=== PATIENT | female | born 1940 | race Caucasian/White ===

== ENCOUNTER → 2017-09-23 12:47 | Outpatient (CLI) | payer MEDICARE, SELFPAY ==
--- NOTE | 2017-09-23 12:50 | RAD_ITS ---
STUDY: SWALLOWING STUDY REASON FOR EXAM: Female, 76 years old. Dysphagia. TECHNIQUE: The examination was performed with Speech Pathology in attendance. Under fluoroscopic observation, the patient ingested thin barium, thick barium, barium pudding, and barium coated cracker. FLUOROSCOPY TIME: 1:41 minutes/seconds. 1433 fluoroscopic spot images were obtained. RADIOLOGIST INVOLVEMENT: Radiologist was present and providing direct supervision. COMPARISON: None. FINDINGS: The following was observed during swallowing of the various mixtures of barium: Thin Barium: There was no evidence of aspiration or laryngeal penetration. Barium Pudding: There was no evidence of aspiration or laryngeal penetration. Barium Coated Cracker: There was no evidence of aspiration or laryngeal penetration. RAD/Swallowing Function w/Video IMPRESSION: Normal tailored barium swallow study. No evidence of increased risk for aspiration. The swallow study findings were discussed with the patient by the speech pathologist at the conclusion of the examination. Please see speech pathology report for more information and recommendations. Electronically Signed: Elmer Linares MD at 15:45 EST Tel [phone], Service support ,
--- NOTE | 2017-09-23 14:42 | SP.MBSS_ITS ---
PRIMARY / SECONDARY DIAGNOSIS: dysphagia (R13.10) REFERRING PHYSICIAN: Dr. Brian Bee MD CURRENT DIET: regular textures, thin liquids DENTITION: WFL MENTAL STATUS: WNL RESPIRATORY STATUS: O2 via room air PREVIOUS MODIFIED BARIUM SWALLOW STUDY: Reports prior MBS quite a few years ago, with a bone spur projecting into the esophagus. REASON FOR REFERRAL: Patient is a 76 year old female referred for a modified barium swallow (MBS) study to objectively assess the Patients oropharyngeal swallow function under fluoroscopy secondary to reported dysphagia with solids and liquids, with the Patient reporting gradual onset with Patient describing that all textures are at times hard to swallow, and hard to keep down. Noted head tremor, diplophonia / vocal tremor, reports workup planned with neurologist within the next few weeks. MEDICAL HISTORY: Arthritis, type II diabetes mellitus, hypercholesterolemia, hypertension, skin cancers, prior cholecystectomy, hemorrhoidectomy, total abdominal hysterectomy, shoulder surgery, bone graft with then subsequent development of a ventral hernia repair with repair, bladder sling procedure. STUDY FINDINGS: Patient participated in a Modified Barium Swallow (MBS) study on 09/23/2017. Dr. Linares was the radiologist present for this evaluation. This study was recorded in the lateral view and images were sent to PACs for storage. The following consistencies were presented to this patient for analysis of oropharyngeal swallow function: thin liquids, pudding, and a regular textured, Stacey Doone cookie. Results of the MBS are as follows: PENETRATION / ASPIRATION SCALE (GONG): 1 = does not enter airway 2 = enters airway/above vocal folds/ejected 3 = enters airway/above vocal folds/not ejected 4 = enters airway/contacts vocal folds/ejected 5 = enters airway/contacts vocal folds/not ejected 6 = enters airway/below vocal folds/ejected 7 = enters airway/below vocal folds/not ejected despite effort 8 = enters airway/below vocal folds/no effort PENETRATION / ASPIRATION SCALE (SCORE): Thin liquids via cup (single sip): 2 Thin liquids via cup (single sip): 1 Thin liquids via cup (single sip): 1 Thin liquids via straw (single sip): 2 Pudding via spoon: 1 Regular textured cookie: 1 Thin liquids via cup (sequential swallows): 4 Thin liquids via straw (single sip): 1 IMPRESSION: DIAGNOSIS: mild oropharyngeal dysphagia (R13.12) ORAL PHASE CHARACTERIZED BY: LABIAL SEAL: no labial escape TONGUE CONTROL DURING BOLUS MANIPULATION: cohesive bolus between tongue to palatal seal BOLUS PREPARATION / MASTICATION: timely and efficient chewing and mashing BOLUS TRANSPORT / LINGUAL MOTION: mild repetitive/disorganized tongue motion with solids; delayed initiation of tongue motion (2-4 seconds) ORAL RESIDUE: residue collection on oral structures during trials of pudding textures PHARYNGEAL PHASE CHARACTERIZED BY: INITIATION OF PHARYNGEAL SWALLOW: bolus head at posterior laryngeal surface of epiglottis at first hyoid excursion during thin liquid via straw trials; bolus head in valleculae at first hyoid excursion across remaining trials SOFT PALATE ELEVATION: no bolus between soft palate and pharyngeal wall LARYNGEAL ELEVATION: complete superior movement of thyroid cartilage with complete approximation of arytenoids cartilage to epiglottic petiole ANTERIOR HYOID EXCURSION: complete anterior movement EPIGLOTTIC MOVEMENT: complete epiglottic inversion LARYNGEAL VESTIBULE CLOSURE AT HEIGHT OF SWALLOW: complete laryngeal vestibule closure with no air/contrast in laryngeal vestibule PHARYNGEAL STRIPPING WAVE: pharyngeal stripping wave present / complete PHARYNGOESOPHAGEAL SEGMENT OPENING: complete distension and complete duration with no obstruction of flow TONGUE BASE RETRACTION: no contrast between tongue base and posterior pharyngeal wall PHARYNGEAL RESIDUE: complete pharyngeal clearance ESOPHAGEAL PHASE CHARACTERIZED BY: ESOPHAGEAL BOLUS CLEARANCE IN THE UPRIGHT POSITION: mild esophageal retention during pudding texture trials at C-7 location, cleared with subsequent bolus DIET TEXTURE RECOMMENDATIONS: Will recommend a regular-soft textured, thin liquid diet. COMPENSATORY STRATEGIES RECOMMENDED: Chin tuck, reduced bolus volume, avoid straws, seated upright at 90 degrees during PO intake, larger medications crushed with applesauce, INTERPRETATION OF RESULTS: Patient presents with mild oropharyngeal and pharyngoesophageal dysphagia ( R13.12, R13.14), likely contributing factors include primary or secondary presbyphagia, and possible undiagnosed neurological component. Oral phase primarily marked by suboptimal lingual control with noted mild repetitive / disorganized tongue motion with solids and persistent delayed initiation of tongue motion (2-4 seconds) typically identified in neurological associated oral phase dysphagia. Pharyngeal phase marked by mild delayed pharyngeal swallow onset timing resulting in suboptimal bolus location upon swallow onset contributing to prandial transient penetration of larger thin liquid bolus. All deficits ameliorated with bolus volume adjustments. Sufficient laryngeal vestibule pressure generated to expel penetrated material. 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 RECOMMENDATIONS: Patient reports plans for neurological workup due to transient upper extremity numbness, would anticipate further workup in regards to noted head tremor and dysphonia if not already completed, as multiple neurological conditions associated with dysphagia present with similar findings identified under fluoroscopy during initial stages, though clearly cannot diagnose through fluoroscopic assessment of the swallow profile. Patient able to comprehend and express recommended intake precautions detailed above with sufficient detail to suggest high likelihood of compliance. Provided brief overview of signs and symptoms of aspiration, with recommendations for the Patient to further discuss symptoms with PCP. No further skilled speech-language services warranted at this time targeting dysphagia. ADDITIONAL COMMENTS/RECOMMENDATIONS: Results and recommendations were discussed with the Patient immediately following MBS completion, with the Patient verbalizing understanding and agreement with all recommendations and education provided. IMAGE COUNT: [id number] G-CODES: SWALLOWING [id number] Current Status: CI SWALLOWING G8997 Goal Status: CI SWALLOWING G8998 Discharge Status: CI
== END ==
PROVIDERS: Family Provider Family Medicine; PCP Family Medicine; Visit Provider Family Medicine
DX: R13.10 Dysphagia, unspecified (principal)
CPT/HCPCS: 74230; 92611; G8996; G8997; G8998

== ENCOUNTER 2020-10-07 05:20 | Day surgery (SDC) | payer MEDICARE, SELFPAY ==
[2020-10-01 15:21] VITALS: BMI 23.8
--- NOTE | 2020-10-07 05:49 | HP.PCM_ITS ---
Problem List (1) Anemia Status: Acute Qualifiers: Anemia type: unspecified type (2) Postprandial nausea Status: Acute History and Physical Date of Admission: 10/07/20 Intake Visit Reasons: FATIGUE, ANEMIA, CSCOPE Chief Complaint: Fatique/anemia/needs upper and lower endoscopies [employer] Required: No Is patient in pain?: No Allergies acetaminophen [From Percocet] Allergy (Intermediate, Verified 10/01/20 15:22) Laryngospasms erythromycin base Allergy (Intermediate, Verified 10/01/20 15:31) stomach ache/headaches oxycodone HCl [From Percocet] Allergy (Intermediate, Verified 10/01/20 15:22) Laryngospasms sulfamethoxazole [From Bactrim] Allergy (Intermediate, Verified 10/01/20 15:30) Nausea trimethoprim [From Bactrim] Allergy (Intermediate, Verified 10/01/20 15:30) Nausea metoclopramide [From Reglan] Allergy (Mild, Verified 10/01/20 15:33) cough azithromycin [From Zithromax Z-Angel] Adverse Reaction (Severe, Verified 10/01/20 15:22) Chest tightness tetracycline Adverse Reaction (Severe, Verified 10/01/20 15:22) Swelling hydrocodone bitartrate [From Vicodin] Adverse Reaction (Intermediate, Verified 10/01/20 15:22) Nausea lisinopril Adverse Reaction (Intermediate, Verified 10/01/20 15:32) cough Medications Aspirin [Adult Low Dose Aspirin EC] 81 mg PO DAILY 05/16/15 [History Confirmed 10/01/20] Cholecalciferol (VIT D3) [Vitamin D] 2,000 unit PO DAILY 05/16/15 [History Confirmed 10/01/20] Nasacort 2 puff NASAL BID PRN 05/16/15 [History Confirmed 10/01/20] Metformin HCl 500 mg PO BID 10/01/20 [History] amlodipine 10 mg tablet 10 mg PO DAILY 10/01/20 [History Confirmed 10/01/20] ascorbate calcium (vitamin C) 500 mg tablet 500 mg PO DAILY 10/01/20 [History Confirmed 10/01/20] biotin 1 mg capsule 5,000 mcg PO DAILY cap 10/01/20 [History Confirmed 10/01/20] chlorthalidone 25 mg tablet 25 mg PO DAILY 10/01/20 [History Confirmed 10/01/20] docusate sodium 100 mg capsule 100 mg PO DAILY PRN 10/01/20 [History Confirmed 10/01/20] famotidine 20 mg tablet 20 mg PO DAILY 10/01/20 [History Confirmed 10/01/20] fenofibrate nanocrystallized 145 mg tablet 145 mg PO DAILY 10/01/20 [History Confirmed 10/01/20] ferrous sulfate 325 mg (65 mg iron) tablet 325 mg PO DAILY 10/01/20 [History Confirmed 10/01/20] lansoprazole 30 mg capsule,delayed release 20 mg PO DAILY cap 10/01/20 [History Confirmed 10/01/20] metoprolol succinate 50 mg tablet,extended release 24 hr 100 mg PO DAILY tab 10/01/20 [History Confirmed 10/01/20] vitamins A,C,F-ckey-mxtyrx 14,320 unit-226 mg-200 unit capsule 1 cap PO BID 10/01/20 [History Confirmed 10/01/20] [facility] Medical History (Updated 10/01/20 @ 15:[address] Ryan Cope MD) Anemia (Acute) Chronic renal failure, stage 4 (severe) (Chronic) Dyspnea on exertion (Acute) Postprandial nausea (Acute) Anemia (Acute) Arthritis (Acute) Constipation (Acute) Diabetes (Acute) Fatigue (Acute) GERD (gastroesophageal reflux disease) (Acute) Hemorrhoids (Acute) Nausea (Acute) SOB (shortness of breath) (Acute) Weakness (Acute) Weight loss (Acute) Hypertension (Chronic) Surgical History (Updated 10/01/20 @ 15:20 by Reyna Kohli) History of back surgery (Acute) History of bladder repair surgery (Acute) History of cholecystectomy (Acute) History of hemorrhoidectomy (Acute) History of hysterectomy (Acute) History of lithotripsy (Acute) History of repair of hiatal hernia (Acute) hhistory exciion skin lesion left arm (Acute) history bunion surgery (Acute) history cataract surgery right eye (Acute) history incisional herniorrhaphy with mesh (Acute) history left eye surgery (Acute) history lysis of adhesions (Acute) history of tumor removed from ureter (Acute) history removal plate in neck (Acute) history surgery left shoulder (Acute) Family History (Updated 10/01/20 @ 15:21 by Reyna Kohli) Mother Cancer leukemia Social History (Updated 10/01/20 @ 15:[address] Ryan Cope MD) Smoking Status: Former smoker alcohol intake: never substance use type: does not use HPI HPI HPI: JUNG LERNER, is a 79 F who presents to the office today for surgical consultation regarding postprandial nausea and generalized abdominal pain and 7 to 10 pound weight loss and anemia. The patient is referred by Dr. Brian Bee and a written copy my surgical consult recommendations will return to him. The patient states that since late July she has not been feeling well. 45 minutes postprandially she gets nausea. When she tries to walk she gets short of breath. She feels very weak and tired. She was just seen in the emergency room at [place] yesterday. She claims that COVID-19 testing was done was negative. She has had both of her vaccinations. She claims that since August 2020 she has had 3 recurrent urinary tract infections. 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 She states that she was seen by Dr. Monroy in [facility] just this past week and was told that she was fine. In the emergency room yesterday she was told that she had a recurrent urinary tract infection. She states that her stool was checked for blood yesterday and it was negative. She had a head CT scan because she was complaining of being dizzy and lightheaded. The head CT scan was unremarkable. She denies family history of colon cancer. She claims that she had a previous colonoscopy but that was quite remote. Evidence goes back to October 25, 2006 when she had esophageal manometry. 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 November 2002 she had a modified barium cookie swallow. That showed a large anterior osteophyte involving the inferior endplate of C5 displacing the esophagus anteriorly. The rest of the study was normal. She currently resides at [facility] Her medication list suggests that she is on a low-dose aspirin 81 mg daily. She is also on metoprolol. She states that she does get constipated and has to take prune juice. As of September 22, 2020 her hemoglobin A1c was 6.1. BUN was 46 and creatinine 1.68. Albumin level 4.4. Liver function tests were normal. Triglycerides elevated to 334. Her white blood cell count was 12.7 with a hemoglobin at that time of 9.6 and hematocrit of 29.1 and a platelet count of 3 and 44,000. As of October 01 her BUN was 38 and creatinine 1.87. Liver function test still normal. Her estimated GFR was 26. Her white blood cell count 14.3 with a hemoglobin of 8.8 hematocrit 26.4 platelet count 353,000. Because of her renal function she had a completely noncontrasted CT not even oral contrast. Poorly evaluated bowel because of lack of contrast. No definitive diagnosis. A chest x-ray from September 2020 showed no focal consolidation pleural effusion or pneumothorax. Because of her dizziness she also had a head CT yesterday that was without contrast. No intracranial abnormalities identified HPI HPI HPI: JUNG LERNER, is a 79 F who presents to the office today for ROS General General: Yes weight change and fatigue; no appetite, colon cancer, breast cancer or weakness HEENT HEENT: Yes eye surgery; no difficulty swallowing, eye injury, swollen glands or hoarseness Endo Endocrine: Yes diabetes mellitus; no thyroid disease, thyroid cancer, Hair loss, heat intolerance or cold intolerance Skin Skin: No rash or changing moles Breast Breast: No left breast lump, right breast lump, nipple discharge, breast pain, abnormal mammogram, abnormal US or breast enlargement Musc Musculoskeletal: Yes arthritis; no back problems, rheumatoid arthritis, gout or joint pain Cardio Cardiovascular: Yes high blood pressure; no murmur, pacemaker, heart disease, atrial fibrillation, heart attack, heart stent, palpitations, shortness of breat with exertion or chest pain Psych Psychiatric: No depression, anxiety or hearing voices Resp Respiratory: Yes shortness of breath, No sleep apnea, No cough, No COPD, No asthma, No emphysema, No wheezing Gastro Gastrointestinal: No abdominal pain, Yes nausea or vomiting, No diarrhea, Yes constipation, No blood in stool, Yes acid reflux, Yes hemorrhoids, No ulcers, No gallbladder problem, No black,tarry stools Jame Hematologic: No blood thinners, No blood disorders, No bleeding, Yes anemia, No blood clots Neuro Neurologic: No system reviewed and no additional complaints, except as docu, No as per HPI, No abnormal walking, No abnormal hearing, No abnormal movements, No abnormal speech, No behavioral changes, No burning sensations, No confusion, No seizure-like activity, No unsteadiness, No dizziness, No localized weakness, No frequent falls, No headache(s), No lack of coordination, No loss of vision, No memory loss, No numbness, No other visual disturbances, No radiating pain, No restless legs, No sensory deficit, No fainting, No tingling, No tremor(s), No weakness, No other Exam Const General: cooperative, comfortable, no acute distress Nutritional Appearance: underweight Orientation: alert, awake Other: Pale appearance, tremor noted HENFL Other: Pale yellow skin Eyes General: appearance normal, both eyes and all related structures Chest Breast Palpation: No nipple discharge Other: Kyphotic, Resp Effort & Inspection: normal respiratory effort Auscultation: clear to auscultation bilaterally Cardio Rate: regular rate Rhythm: regular rhythm Heart Sounds: no murmurs GI Palpation: soft Other: Palpable ascending: Seemingly with stool slightly mobile, no hepatosplenomegaly, mild diffuse tenderness throughout the left mid abdomen and lower but no mass no guarding no rebound, very active bowel sounds, well-healed transverse incision epigastrium and then upper mid abdomen with that a well- healed vertical midline incision from superior to the umbilicus to the pubis. Slightly bloated abdomen but not tense. Assessment & Plan Problems 1. Postprandial nausea R11.0 2. Dyspnea on exertion R06.00 3. Chronic renal failure, stage 4 (severe) N18.4 4. Anemia, unspecified type D64.9 Plan I propose for the patient a esophagogastroduodenoscopy with possible biopsy and colonoscopy possible biopsy or polypectomy as indicated. She is aware of the technique, benefit, risk and alternatives. She has had an opportunity to ask and have questions answered. We will definitely use monitored anesthesia care. She is aware that she is at increased risk. Although her stool recent was Hemoccult negative I do believe that endoscopic evaluation is pertinent. If no definitive finding is identified then I would recommend consideration for nephrology consultation. Although the patient is recently seen by her urologist the patient herself states that she has had repetitive urinary tract infections. I am not clear that this is been definitively answered for her. I appreciate the opportunity of assisting with her surgical care. We will try to expedite her management. Copy: Dr. Brian Cope M.D., F.A.C.S. Coding Level of Care Code 72527 Diagnoses Postprandial nausea R11.0 Dyspnea on exertion R06.00 Chronic renal failure, stage 4 (severe) N18.4 Anemia, unspecified type D64.9 ??Anemia type: unspecified type I have re-examined the patient. There are no clinical changes since date of exam. Procedure Criteria Procedure Type: Elective COVID Risk Discussion: The surgeon/proceduralist and patient have discussed in detail the risk of exposure to and/or potential harm posed by the COVID-19 virus with having a surg woo/procedure at this time versus the risk of delaying the surgery/procedure. It is not possible to know either the risk of delaying the surgery or procedure or chance of getting an infection with perfect accuracy, but a joint decision was made between the patient and the surgeon/proceduralist to proceed at this time with the scheduled surgery/procedure as indicated on the consent form.
[2020-10-07 05:53] VITALS: BP 130/54; PULSE 63; RESP 20; TEMP 36.6; O2SAT 98; BMI 23.5
[2020-10-07] MEDS: Lactated Ringers 1,000 ML 100 ML IV (06:18)
--- NOTE | 2020-10-07 06:30 | IMM_PTH ---
PATIENT: JUNG LERNER LOC: EN U#:[id number] AGE/SX: 80/F ROOM: RE10/07/[address]: Dr. Ryan Cope MD : 1940 BED: DIS: 10/07/2020 SPEC #: [id number] RECD: 10/08/20 09:37 STATUS: ALLIE REQ #: [id number] BRITNEY: 10/07/20 06:[address]: Ryan Cope DEPT: IMMUNOHISTOCHEMISTRY RECD BY: Myla Jorge ENTERED: 10/08/20 09:38 SP TYPE: IMMUNO OTHR DR: Dr. Brian Bee MD Tissues: B - Stomach, NOS Procedures: H Pylori (initial) PHYSICIAN & INSTITUTION [place] [phone] SPECIMEN INFORMATION: Tissue Source: B - Antrum biopsy Clinical Info: Postprandial nausea; dyspnea on exertion; chronic renal failure stage 4; anemia Specimen Number: [id number] CPT code: 62154 METHODOLOGY: Deparaffinized sections of prefer/formalin-fixed tissue or PAP/DQ stained slides are incubated with monoclonal/polyclonal antibodies/oligonucleotide probes. Localization is made via biotin free immunoperoxidase method. Appropriate controls are performed and reacted as expected. Results on target cell population are indicated in the following table: RESULTS: ANTIBODY / CLONE RESULT Block B H Pylori (polyclonal) negative These tests were developed and their performance characteristics determined by [facility]. They may not have been cleared or approved by the U.S. Food and Drug Administration. The FDA has determined that such clearance or approval is not necessary. INTERPRETATION: B. Antrum, biopsy: Negative for Helicobacter pylori organisms. SJ:emani 10/09/2020
--- NOTE | 2020-10-07 06:30 | EGD_PTH ---
PATIENT: JUNG LERNER LOC: EN U#:[id number] AGE/SX: 80/F ROOM: RE10/07/[address]: Dr. Ryan Cope MD : 1940 BED: DIS: 10/07/2020 SPEC #: [id number] RECD: 10/07/20 13:43 STATUS: ALLIE [facility] #: [id number] BRITNEY: 10/07/20 06:[address]: Ryan Cope DEPT: SURGICAL PATHOLOGY RECD BY: Savannah Bazan ENTERED: 10/08/20 07:41 SP TYPE: EGD BIOPSY OT DR: Dr. Brian Bee MD Tissues: A - Duodenum, NOS B - Gastric mucous membrane C - Gastric fundus D - Esophagus, NOS E - Esophagus, NOS F - COLON BIOPSY G - Transverse colon H - Transverse colon Procedures: Special Stain Group II Surgery Specimen Level IV Alcian Blue/PAS (control) HEADER OPERATION: [place] [place]-OP DIAGNOSIS: Postprandial nausea, dyspnea on exertion, chronic renal failure stage 4, anemia TISSUE SUBMITTED: A - Duodenum biopsy, B - Antrum biopsy for H. pylori and path, C - Fundic polyp biopsy, D - Distal esophagus biopsy, E - Mid esophagus biopsy, F - Random colonic biopsies, G - Proximal transverse colon polyp biopsy, H - Mid transverse colon polyp biopsy MICROSCOPIC DIAGNOSIS A. Duodenum, biopsy: A fragment of duodenal mucosa, no pathologic diagnosis. B. Antrum, biopsy: Mild gastritis. See microscopic description and comment. C. Fundic polyp, biopsy: Fundic gland polyp. D. Distal esophagus, biopsy: A fragment of gastroesophageal mucosa with focal intestinal metaplasia (goblet cell metaplasia), consistent with Portillo's esophagus. Negative for dysplasia. See comment. E. Mid esophagus, biopsy: Fragments of squamous epithelium, no pathologic diagnosis. F. Colon, random biopsy: Fragments of colonic mucosa, no pathologic diagnosis. G. Proximal transverse colon polyp, biopsy: Tubular adenoma. H. Mid transverse colon polyp, biopsy: A fragment of colonic mucosa, no pathologic diagnosis. SJ:emani 10/09/2020 COMMENT B. The results of immunohistochemistry for Helicobacter pylori will be reported separately ([id number]). D. The specimen predominantly consists of squamous epithelium. Alcian blue/PAS stain with matched control is used in the evaluation of the specimen. MICROSCOPIC DESCRIPTION Slides are reviewed. B. The specimen shows fragments of gastric mucosa with chronic inflammatory cell infiltrates in the lamina propria consisting of lymphocytes and plasma cells, consistent with mild chronic gastritis. GROSS DESCRIPTION A - Received in fixative is one container labeled with the patient's name and designated duodenum biopsy. The specimen consists of one irregular fragment of light gorman soft tissue that measures 0.3 x 0.3 x 0.1 cm. The specimen is totally submitted in one cassette. B - Received in fixative is one container labeled with the patient's name and designated antrum biopsy. The specimen consists of one irregular fragment of light gorman soft tissue that measures 0.3 x 0.2 x 0.1 cm. The specimen is totally submitted in one cassette. C - Received in fixative is one container labeled with the patient's name and designated fundic polyp biopsy. The specimen consists of two irregular fragments of light gorman soft tissue that in aggregate measure 0.5 x 0.2 x 0.1 cm. The specimen is totally submitted in one cassette. D - Received in fixative is one container labeled with the patient's name and designated distal esophagus biopsy. The specimen consists of one irregular fragment of light gorman soft tissue that measures 0.5 x 0.5 x 0.1 cm. The specimen is totally submitted in one cassette. E - Received in fixative is one container labeled with the patient's name and designated mid esophagus biopsy. The specimen consists of two irregular fragments of light gorman soft tissue that in aggregate measure 0.8 x 0.4 x 0.1 cm. The specimen is totally submitted in one cassette. F - Received in fixative is one container labeled with the patient's name and designated random colonic biopsy. The specimen consists of multiple irregular fragments of light gorman soft tissue that in aggregate measure 2 x 0.5 x 0.1 cm. The specimen is totally submitted in one cassette. G - Received in fixative is one container labeled with the patient's name and designated proximal transverse colon polyp biopsy. The specimen consists of one irregular fragment of light gorman soft tissue that measures 0.3 x 0.2 x 0.1 cm. The specimen is totally submitted in one cassette. H - Received in fixative is one container labeled with the patient's name and designated mid transverse colon polyp biopsy. The specimen consists of one irregular fragment of light gorman soft tissue that measures 0.3 x 0.3 x 0.1 cm. The specimen is totally submitted in one cassette. / SJ:rg 10/08/20 TC:1 CPT: 56065 x8, 66730
[2020-10-07 07:15] VITALS: BP 117/42; BP 130/54; PULSE 58; RESP 16; TEMP 36.3; O2SAT 100
--- NOTE | 2020-10-07 07:18 | OP.EGD_ITS ---
Patient Name: Mckenna Hooks Procedure Date: 10/07/2020 6:14 AM Date of : 1940 Age: 80 Procedure: Upper GI endoscopy Indications: Generalized abdominal pain Providers: Ryan Cope MD Referring MD: Brian Bee Medicines: See the Anesthesia note for documentation of the administered medications Complications: No immediate complications. Procedure: Pre-Anesthesia Assessment: - Prior to the procedure, a History and Physical was performed, and patient medications and allergies were reviewed. The patient's tolerance of previous anesthesia was also reviewed. The risks and benefits of the procedure and the sedation options and risks were discussed with the patient. All questions were answered, and informed consent was obtained. Prior Anticoagulants: The patient has taken aspirin, last dose was day of procedure. ASA Grade Assessment: III - A patient with severe systemic disease. After reviewing the risks and benefits, the patient was deemed in satisfactory condition to undergo the procedure. After obtaining informed consent, the endoscope was passed under direct vision. Throughout the procedure, the patient's blood pressure, pulse, and oxygen saturations were monitored continuously. The gastroscope was introduced through the mouth, and advanced to the second part of duodenum. The upper GI endoscopy was accomplished without difficulty. The patient tolerated the procedure well. Scope In: 6:32:12 AM Scope Out: 6:39:34 AM Total Procedure Duration Time 0 hours 7 minutes 22 seconds Findings: A small hiatal hernia was present. Esophagitis with no bleeding was found 40 cm from the incisors. Biopsies were taken with a cold forceps for histology. The mid esophagus was normal. Biopsies were taken with a cold forceps for histology. A few sessile polyps with no bleeding and no stigmata of recent bleeding were found in the gastric fundus. The polyp was removed with a cold biopsy forceps. Resection and retrieval were complete. Diffuse mildly erythematous mucosa without bleeding was found in the gastric antrum. Biopsies were taken with a cold forceps for histology. The examined duodenum was normal. Biopsies were taken with a cold forceps for histology. Impression: - Small hiatal hernia. - Reflux esophagitis. Biopsied. - Normal mid esophagus. Biopsied. - A few gastric polyps. Resected and retrieved. - Erythematous mucosa in the antrum. Biopsied. - Normal examined duodenum. Biopsied. Recommendation: - Discharge patient to home. - Resume previous diet. - Continue present medications. - Use sucralfate tablets 1 gram PO QID. No findings to correlate with degree of patient symptoms Procedure Code(s): --- Professional --- 97941, Esophagogastroduodenoscopy, flexible, transoral; with biopsy, single or multiple Diagnosis Code(s): --- Professional --- K44.9, Diaphragmatic hernia without obstruction or gangrene K21.0, Gastro-esophageal reflux disease with esophagitis K31.7, Polyp of stomach and duodenum K31.89, Other diseases of stomach and duodenum R10.84, Generalized abdominal pain CPT copyright 2017 [employer]. All rights reserved. The codes documented in this report are preliminary and upon hcc coders review may be revised to meet current compliance requirements. Ryan Cope MD 10/07/2020 7:17:48 AM This report has been signed electronically. Number of Addenda: 0 Note Initiated On: 10/07/2020 6:14 AM
--- NOTE | 2020-10-07 07:18 | OP.CCLET_ITS ---
10/07/2020 Brian Bee Re : Upper GI endoscopy procedure for Mckenna Hooks Dear Cristal This procedure was performed on Wednesday, October 07, 2020. My impressions and recommendations are as follows: Impressions : - Small hiatal hernia. - Reflux esophagitis. Biopsied. - Normal mid esophagus. Biopsied. - A few gastric polyps. Resected and retrieved. - Erythematous mucosa in the antrum. Biopsied. - Normal examined duodenum. Biopsied. Recommendations : - Discharge patient to home. - Resume previous diet. - Continue present medications. - Use sucralfate tablets 1 gram PO QID. No findings to correlate with degree of patient symptoms My findings are described in the full procedure note, which is enclosed. If I can be of further assistance, please feel free to contact me at Doctor phone number(s): Work: . Sincerely, Ryan Cope MD 10/07/2020 7:17:48 AM This report has been signed electronically.
[2020-10-07 07:20] VITALS: BP 126/45; BP 130/54; PULSE 58; RESP 16; O2SAT 100
--- NOTE | 2020-10-07 07:22 | OP.CCLET_ITS ---
10/07/2020 Brian Bee Re : Colonoscopy procedure for Mckenna Hooks Dear Cristal This procedure was performed on Wednesday, October 07, 2020. My impressions and recommendations are as follows: Impressions : - Hemorrhoids found on perianal exam. - One 6 mm polyp in the proximal transverse colon, removed with a cold biopsy forceps. Resected and retrieved. - One 3 mm polyp in the mid transverse colon, removed with a cold biopsy forceps. Resected and retrieved. - Diverticulosis in the sigmoid colon. - The examination was otherwise normal. - Biopsies were taken with a cold forceps from the entire colon for evaluation of microscopic colitis. Recommendations : - Discharge patient to home. - Resume previous diet. - Continue present medications. - Repeat colonoscopy in 5 years for surveillance based on pathology results. - Telephone my office for pathology results in 1 week. No findings to correlate with abdominal pain Consider chronic renal insufficiency as source My findings are described in the full procedure note, which is enclosed. If I can be of further assistance, please feel free to contact me at Doctor phone number(s): Work: . Sincerely, Ryan Cope MD 10/07/2020 7:21:29 AM This report has been signed electronically.
--- NOTE | 2020-10-07 07:22 | OP.COLON_ITS ---
Patient Name: Mckenna Hooks Procedure Date: 10/07/2020 6:40 AM Date of : 1940 Age: 80 Procedure: Colonoscopy Indications: Generalized abdominal pain Providers: Ryan Cope MD Referring MD: Brian Bee Medicines: See the Anesthesia note for documentation of the administered medications Patient Profile: Last Colonoscopy: more than 10 years ago. Complications: No immediate complications. Procedure: Pre-Anesthesia Assessment: - Prior to the procedure, a History and Physical was performed, and patient medications and allergies were reviewed. The patient's tolerance of previous anesthesia was also reviewed. The risks and benefits of the procedure and the sedation options and risks were discussed with the patient. All questions were answered, and informed consent was obtained. Prior Anticoagulants: The patient has taken aspirin, last dose was day of procedure. ASA Grade Assessment: III - A patient with severe systemic disease. After reviewing the risks and benefits, the patient was deemed in satisfactory condition to undergo the procedure. After I obtained informed consent, the scope was passed under direct vision. Throughout the procedure, the patient's blood pressure, pulse, and oxygen saturations were monitored continuously. The Colonoscope was introduced through the anus and advanced to the cecum, identified by appendiceal orifice and ileocecal valve. The colonoscopy was technically difficult and complex due to a tortuous colon. Successful completion of the procedure was aided by applying abdominal pressure. The patient tolerated the procedure well. The quality of the bowel preparation was adequate to identify polyps. The ileocecal valve and the appendiceal orifice were photographed. Scope In: 6:42:32 AM Scope Withdrawal Time 0 hours 12 minutes 6 seconds Scope Out: 7:11:08 AM Total Procedure Duration Time 0 hours 28 minutes 36 seconds Findings: Hemorrhoids were found on perianal exam. A 6 mm polyp was found in the proximal transverse colon. The polyp was sessile. The polyp was removed with a cold biopsy forceps. Resection and retrieval were complete. A 3 mm polyp was found in the mid transverse colon. The polyp was sessile. The polyp was removed with a cold biopsy forceps. Resection and retrieval were complete. Multiple diverticula were found in the sigmoid colon. Biopsies for histology were taken with a cold forceps from the entire colon for evaluation of microscopic colitis. The exam was otherwise without abnormality. Impression: - Hemorrhoids found on perianal exam. - One 6 mm polyp in the proximal transverse colon, removed with a cold biopsy forceps. Resected and retrieved. - One 3 mm polyp in the mid transverse colon, removed with a cold biopsy forceps. Resected and retrieved. - Diverticulosis in the sigmoid colon. - The examination was otherwise normal. - Biopsies were taken with a cold forceps from the entire colon for evaluation of microscopic colitis. Recommendation: - Discharge patient to home. - Resume previous diet. - Continue present medications. - Repeat colonoscopy in 5 years for surveillance based on pathology results. - Telephone my office for pathology results in 1 week. No findings to correlate with abdominal pain Consider chronic renal insufficiency as source Procedure Code(s): --- Professional --- 98499, Colonoscopy, flexible; with biopsy, single or multiple Diagnosis Code(s): --- Professional --- K64.9, Unspecified hemorrhoids D12.3, Benign neoplasm of transverse colon (hepatic flexure or splenic flexure) R10.84, Generalized abdominal pain K57.30, Diverticulosis of large intestine without perforation or abscess without bleeding CPT copyright 2017 [employer]. All rights reserved. The codes documented in this report are preliminary and upon psychologist social review may be revised to meet current compliance requirements. Ryan Cope MD 10/07/2020 7:21:29 AM This report has been signed electronically. Number of Addenda: 0 Note Initiated On: 10/07/2020 6:40 AM
[2020-10-07 07:25] VITALS: BP 130/54; BP 132/46; PULSE 57; RESP 16; O2SAT 100
[2020-10-07 07:32] VITALS: BP 130/54; BP 136/50; PULSE 58; RESP 16; TEMP 36.1; O2SAT 99
[2020-10-07 07:59] VITALS: BP 130/54
== END 2020-10-07 08:10 | disposition home or self-care (01) ==
LOC: EN 05:23 → AC 05:23
PROVIDERS: PCP Family Medicine; Referring Provider Family Medicine; Visit Provider Surgery
PROC: 0DJD8ZZ Inspection of Lower Intestinal Tract, Via Natural or Artificial Opening Endoscopic (ICD-10-PCS; CPT 45378; principal; 2020-10-07 06:25)
DX: K21.00 Gastro-esophageal reflux disease with esophagitis, without bleeding (principal); Z20.828 Contact with and (suspected) exposure to other viral communicable diseases; D64.9 Anemia, unspecified; K31.7 Polyp of stomach and duodenum; K29.70 Gastritis, unspecified, without bleeding; D12.3 Benign neoplasm of transverse colon; I12.9 Hypertensive chronic kidney disease with stage 1 through stage 4 chronic kidney disease, or unspecified chronic kidney disease; K44.9 Diaphragmatic hernia without obstruction or gangrene; N18.4 Chronic kidney disease, stage 4 (severe); M19.90 Unspecified osteoarthritis, unspecified site; E11.22 Type 2 diabetes mellitus with diabetic chronic kidney disease; K59.00 Constipation, unspecified; R06.09 Other forms of dyspnea; Z79.899 Other long term (current) drug therapy; Z79.84 Long term (current) use of oral hypoglycemic drugs; Z79.82 Long term (current) use of aspirin; Z87.891 Personal history of nicotine dependence; K57.30 Diverticulosis of large intestine without perforation or abscess without bleeding
CPT/HCPCS: 43239; 45380; 87426; 88305; 88313; 88342; J7120

== ENCOUNTER → 2021-04-01 08:45 | Outpatient (CLI) | payer MEDICARE, SELFPAY ==
[2021-04-01] VITALS (10 sets, daily range): BP systolic 119–158; BP diastolic 41–72; PULSE 57–77; RESP 16–19; TEMP 36.6; O2SAT 94–100; BMI 22.4
--- NOTE | 2021-04-01 | IMM_PTH ---
PATIENT: JUNG LERNER LOC: CT U#:[id number] AGE/SX: 84/F ROOM: RE04/01/[address]: MEE Murray : 1940 BED: DIS: SPEC #: [id number] RECD: 04/02/21 13:15 STATUS: ALLIE REYordan #: [id number] BRITNEY: 04/01/21 00:[address]: Aranza Stanley NP DEPT: IMMUNOHISTOCHEMISTRY RECD BY: Myla Jorge ENTERED: 04/02/21 13:16 SP TYPE: IMMUNO OTHR DR: Dr. Brian Bee MD Tissues: A - Bone marrow of iliac crest Procedures: CD138 (add) CD20 (add) CD34 (add) CD45 (add) CD56 (add) CD79A (add) KAPPA (add) LAMBDA (add) MPO (add) Pankeratin (initial) PHYSICIAN & INSTITUTION [place] [id number] SPECIMEN INFORMATION: Tissue Source: A ? Bone marrow core Clinical Info: Leukocytosis, macrocytic anemia, thrombocytosis Specimen Number: [id number] CPT code: 32628, 04204 x9 METHODOLOGY: Deparaffinized sections of prefer/formalin-fixed tissue or PAP/DQ stained slides are incubated with monoclonal/polyclonal antibodies/oligonucleotide probes. Localization is made via biotin free immunoperoxidase method. Appropriate controls are performed and reacted as expected. Results on target cell population are indicated in the following table: RESULTS: ANTIBODY / CLONE RESULT Block A AE1-3 (AE1/AE3/PCK26) negative CD20 (L26) negative CD45 (RP2/18) negative CD79a (11E3) negative CD138 (B-A38) negative Carrabelle (polyclonal) negative Lambda (polyclonal) negative MPO (polyclonal) positive CD34 (QBEnd-10) positive, occasional CD56 (123C3.D5) negative These tests were developed and their performance characteristics determined by [facility]. They may not have been cleared or approved by the U.S. Food and Drug Administration. The FDA has determined that such clearance or approval is not necessary. The above immunohistochemical/dualISH markers are ordered and reviewed by the Pathologist. INTERPRETATION: A. Bone marrow core: Hypercellular bone marrow with dysplastic change and increased (approximately 4%) myeloblasts. AM:emani 04/03/2021 Case has been reviewed in consultation with Dr. Peter who concurs with the above diagnosis. IDC:SJ ADDENDUM ADDENDUM ADDENDUM ADDENDUM ADDENDUM ADDENDUM ADDENDUM ADDENDUM ADDENDUM ADDENDUM ADDENDUM ADDENDUM 04/08/2021 11:14 ADDENDUM 04/09/2021 11:28 ADDENDUM 04/08/2021 11:14 ADDENDUM 04/08/2021 11:14 ADDENDUM 04/08/2021 11:14 ADDENDUM 04/08/2021 11:14 FLUORESCENCE IN-SITU HYBRIDIZATION (FISH) FROM [facility] INTERPRETATION: 1. No evidence of BCR/ABL rearrangement. 2. No evidence of PML/ALIVIA gene rearrangement. 3. No evidence of RUNX1/GDZN3N1 rearrangement, however a subset of cells show an abnormal hybridization pattern consistent with gain of 8q or trisomy 8. 4. No evidence of CBFB [inversion (16) or translocation t(16;16)] gene rearrangement. 5. No evidence of MLL gene locus 11q23 translocation. Please see complete report in e-chart or EMR CYTOGENETICS REPORT FROM [facility] INTERPRETATION: A normal male/female karyotype was observed in twenty metaphases analyzed. 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 3q abnormalities were also reported in myeloid malignancies. Correlation with hematopathology is suggested Please see complete report in e-chart or EMR for further details
--- NOTE | 2021-04-01 | BMB_PTH ---
PATIENT: JUNG LERNER LOC: CT U#:[id number] AGE/SX: 84/F ROOM: RE04/01/[address]: MEE Murray : 1940 BED: DIS: SPEC #: [id number] RECD: 04/01/21 13:08 STATUS: ALLIE [facility] #: [id number] BRITNEY: 04/01/21 00:[address]: Aranza Stanley NP DEPT: BONE MARROW RECD BY: Savannah Bazan ENTERED: 04/01/21 13:09 SP TYPE: BMB OSMANY DR: Dr. 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 See comment. AM:emani 04/03/2021 COMMENT Flow cytometry analysis of aspirate material reveals mild increase in CD34 positive myeloblasts (4%) suggesting myeloid disorder. Immunohistochemistry ([id number]) also reveals a mildly increased blast population (2-3%). The bone marrow biopsy is markedly hypercellular (approximately 85%) and contains myeloproliferative morphology with clustering of atypical megakaryocytes, increased reticulin and trichrome fibers focally and small collections of mononuclear cells suggestive of blasts. The aspirate material is markedly hypocellular also suggesting myelofibrosis. Molecular and cytogenetic studies are pending and will be reported as an addendum. Case has been reviewed in consultation with Dr. Peter who concurs with the above diagnosis. IDC:SJ BONE MARROW STUDY Slides are reviewed. CBC DATE: 04/01/21 WBC 51.8; RBC 2.24; HGB 7.8; HCT 24.4; MCV 108.9; RDW 21.8; PLTS 510,000 SEGS 43%; LYMPHS 16%; MONOS 7%; EOS 2%; BASOS 0%; blasts 4 PERIPHERAL SMEAR: Submitted. RBC: Macrocytic anemia WBC: Left shift with dysplastic change and 4% blasts PLTS: Mild thrombocytosis. BONE MARROW ASPIRATE DIFFERENTIAL: Markedly hemodilute with 3-4% myeloblasts. 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 Unable to further analyze. SPECIAL STAINS (with matched controls): Iron: Stainable iron present with occasional atypical sideroblasts Reticulin: Focally increased (2/4) PAS: Highlights myeloid elements and megakaryocytes. Trichrome: Focally increased. BONE MARROW GROSS A - Received is a container labeled with the patient's name and designated right hip. The specimen consists of an elongated piece of bone with blood clots. The bone measures 3 cm in length and 0.2 cm in diameter. The blood clots measure in aggregate 1.5 x 0.5 x 0.2 cm. The specimen is totally submitted in one cassette after decalcification. B - Received labeled with the patient's name and designated right hip is a specimen that consists of approximately 4 cc of bloody fluid that on filtration yields multiple minute fragments of blood clots measuring in aggregate 3 x 2.5 x 0.2 cm. The specimen is totally submitted in one cassette. C - Also received are 18 unstained and 1 peripheral stained slides. The unstained slides are submitted for appropriate staining. Also received are three green top tubes which are sent to our reference lab for flow, cytogenetics and FISH x2. 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 Karyotype: 47,XX,add(3)(q12),+8[20] FLUORESCENCE IN-SITU HYBRIDIZATION (FISH) FROM [facility] INTERPRETATION: 1. No evidence of BCR/ABL rearrangement. 2. No evidence of PML/ALIVIA gene rearrangement. 3. No evidence for RUNX1/BACJ5W7 rearrangement, however a subset of cells show an abnormal hybridization pattern consistent with gain of 8q or trisomy 8. 4. No evidence of CBFB [inversion(16) or translocation t(16;16)] gene rearrangement. 5. No evidence of MLL gene locus 11q23 translocation. Please see complete report in e-chart or EMR
--- NOTE | 2021-04-01 09:01 | CT_ITS ---
PROCEDURE: Right iliac bone marrow aspiration and biopsy. DATE OF EXAMINATION: 04/01/2021 INDICATION: , 80 years old female presenting with blood dyscrasias referred for biopsy. PHYSICIAN: Camila Salas MD FLUOROSCOPY TIME (if supplied): (None) minutes/seconds RADIATION DOSAGE (If Supplied By Facility): (1710.14 ) mGy CONSENT: The risks, benefits and alternatives to the procedure were explained to the patient, and the patient agreed to the procedure and signed the consent. SEDATION: STERILE BARRIER TECHNIQUE: The following sterile barrier precautions were used during the procedure: hand hygiene; use of 2% chlorhexidine aseptic; use of a cap, mask, sterile gown, sterile gloves, sterile full body drape, and a large sterile sheet. PROCEDURE/TECHNIQUE: (All elements of maximal sterile barrier technique followed, including US elements as applicable) The risks, benefits, and alternatives to the procedure were explained to patient, and the patient agreed to the procedure and signed a consent form for the procedure. A timeout was performed to confirm the patient''s identity, the type of procedure, to be performed and the site of entry. The patient was positioned prone on the CT table and a limited CT scan of the pelvis was obtained. After evaluation of the images the right iliac bone was selected for sampling. The overlying skin was then prepped and draped in the usual sterile manner, LIDOCAINE 2% local anesthesia was then applied to the skin and subcutaneous soft tissues after which a small skin kena was made. An 11-gauge biopsy needle was then inserted under CT guidance into the right iliac bone and bone marrow aspiration was attempted, approximately 2 cc of fluid were aspirated and evaluated by the pathologist on site, repeat attempts aspiration for obtaining the marrow aspirate were unsuccessful therefore they were abandoned. 2 core biopsy specimens were then obtained and placed in formalin for the pathologist. The needle was then removed, manual pressure was applied and complete hemostasis was obtained. The patient tolerated the procedure well with no immediate complications. CT/Biopsy/Inj or Needle Placement IMPRESSION: Dry tap of bone marrow aspiration, two core bone biopsy specimens were obtained and sent to lab for analysis. Electronically Signed: Stephan Salas MD at 15:52 EDT Tel , Service support ,
[2021-04-01 09:13] LABS: Hematocrit 24.4 % (37-47); Hemoglobin 7.8 g/dL (12.0-15.0); Mean Corpuscular Hgb 34.8 pg (27.0-32.0); Mean Corpuscular Volume 108.9 fL (81-99); Mean Platelet Vol. 10.5 fl (6.2-12.0); POSITIVE COUNT YES; POSITIVE DIFFERENTIAL YES; POSITIVE MORPHOLOGY YES; Platelet Count 510 K/mm3 (150-450); RBC Distribution Width CV 21.8 % (11.6-14.6); RBC Distribution Width SD 83.4 fl (35.1-43.9); Red Blood Count 2.24 M/mm3 (4.2-5.4); White Blood Count 51.8 K/mm3 (4.4-11.0)
[2021-04-01 09:19] LABS: Differential Indicated MANUAL DIFF
[2021-04-01 09:21] LABS: International Normalized Ratio 1.2; Prothrombin Time (Protime)PT. 14.5 SECONDS (11.7-14.9)
[2021-04-01 09:22] LABS: Partial Thromboplast Time 35.2 Seconds (24.1-36.2)
[2021-04-01] MEDS: Midazolam 2 MG/2 ML Syringe IV (10:00)
[2021-04-01] MEDS: fentaNYL 100 MCG/2 ML Ampul IV (10:02)
[2021-04-01] MEDS: 0.9% Saline Lock 10 ML Syringe IV (10:05)
[2021-04-01] MEDS: Lidocaine 2% (20 ml mdv) 20 ML Vial INFILT (10:08)
[2021-04-01 10:19] LABS: Blast 4 % (0-0); Eosinophil 2 % (0-5); Lymphocyte 16 % (19-41); Metamyelocyte 6 % (0-1); Monocyte 7 % (0-10); Myelocyte 1 % (0-0); Neutrophil-Band 19 % (0-5); Neutrophil-Segmented 43 % (47-70); Promyelocyte 2 % (0-0); Total Cells Counted 100 (MANUAL DIFF)
[2021-04-01 10:21] LABS: Platelet Estimate SLT INC (ADEQ)
[2021-04-01 10:22] LABS: Anisocytosis 1+; Red Cell Morphology N CHROM NORMAL (NORM C&C)
[2021-04-01 10:24] LABS: Absolute Lymphocyte Count 8.29 X10^3/uL (0.83-4.51); Absolute Neutrophil Count 32.1 X10^3/uL (2.0-7.7)
[2021-04-01 10:25] LABS: Pathologist Review May foll
== END | disposition home or self-care (01) ==
PROVIDERS: PCP Family Medicine; Referring Provider Nurse Practitioner Family; Visit Provider Nurse Practitioner Family
DX: D72.829 Elevated white blood cell count, unspecified (principal); D47.3 Essential (hemorrhagic) thrombocythemia; N18.4 Chronic kidney disease, stage 4 (severe); D64.9 Anemia, unspecified; R11.0 Nausea
CPT/HCPCS: 38222; 36415; 77012; 85025; 85610; 85730; 88305; 88311; 88313; 88341; 88342; 99156; 99157; J7040; A4216

== ENCOUNTER 2021-07-30 17:18 | Inpatient (IN) | payer MEDICARE, SELFPAY ==
[2021-07-30 17:50] VITALS: BP 150/63; PULSE 79; RESP 16; TEMP 36.8; O2SAT 94; BMI 22.6
--- NOTE | 2021-07-30 18:50 | RAD_ITS ---
EXAM: XR ABDOMEN, 1 VIEW CLINICAL INDICATION: constipation, hx of multiple ilieus TECHNIQUE: Frontal supine view of the abdomen/pelvis. This report was created using [employer] report generation technology. COMPARISON: CT 10/07/2016 FINDINGS: LOWER THORAX: No acute pathology. GASTROINTESTINAL TRACT: Diffuse air-filled dilated small bowel loops. Findings may represent an ileus or small bowel obstruction. CT can further evaluate. ORGANS: Unremarkable as visualized. No organomegaly. No abnormal calcifications. BONES/JOINTS: Degenerative findings in the hips and lumbar spine. SOFT TISSUES: No acute pathology. RAD/Abdomen Single View IMPRESSION: Diffuse air-filled dilated small bowel loops. Findings may represent an ileus or small bowel obstruction. CT can further evaluate. Electronically Signed: Greg Horner MD at 22:17 EST , Service support ,
--- NOTE | 2021-07-30 18:51 | PCM.HP.STD ---
HPI - General General Date of Admission: 07/30/21 HPI Narrative 07/27/2021 JUNG LERNER, is a 80 Female with below past medical history admitted to [facility]. Weakness, right leg pain, change in mental status, fever. Right knee aspirated 1 day prior. covid negative. Rocephin, Vancomycin, IV fluids given. Patient has myelodysplastic syndrome. Hematology recommended PRBC transfusion hemoglobin < 7.0. Hematology recommended Platelet transfusion Plaletlet < 15,000. Transfuse PRBC for myelodysplastic syndrome. Doppler ultrasound right lower extremity negative DVT, Rocephin, Vancomycin for right knee ? septic arthritis. X-ray right hip negative for right hip pain. Lopressor 5mg IV x 2 for atrial fibrillation with rapid ventricular response. 07/30/2021 Admit to TCU with debility, here for rehabilitation, strengthening, prior to discharge to [facility]. On arrival, abdomen distended, per son, history of ileus. [facility] Medical History Anemia Anemia Arthritis Chronic renal failure, stage 4 (severe) Constipation Diabetes Dyspnea on exertion Elevated serum globulin level Fatigue GERD (gastroesophageal reflux disease) Hemorrhoids Hypertension Macrocytic anemia Nausea Postprandial nausea SOB (shortness of breath) Weakness Weight loss Home Medications Nasacort 2 puff NASAL BID PRN 05/16/15 [History Last Taken Unknown] aspirin 81 mg PO DAILY 05/16/15 [History Last Taken 03/31/21] cholecalciferol (vitamin D3) 2,000 unit PO DAILY 05/16/15 [History Last Taken 03/31/21] Metformin HCl 500 mg PO BID 10/01/20 [History Last Taken 04/01/21 07:00] amlodipine 10 mg tablet 10 mg PO DAILY 10/01/20 [History Last Taken 04/01/21 07:00] ascorbate calcium (vitamin C) 500 mg tablet 500 mg PO DAILY 10/01/20 [History Last Taken 03/31/21] biotin 1 mg capsule 5,000 mcg PO DAILY cap 10/01/20 [History Last Taken 03/31/21] chlorthalidone 25 mg tablet 25 mg PO DAILY 10/01/20 [History Last Taken 04/01/21 07:00] docusate sodium 100 mg capsule 100 mg PO DAILY PRN 10/01/20 [History Last Taken 03/31/21] fenofibrate nanocrystallized 145 mg tablet 130 mg PO DAILY 10/01/20 [History Last Taken 03/31/21] metoprolol succinate 50 mg tablet,extended release 24 hr 100 mg PO DAILY tab 10/01/20 [History Last Taken 04/01/21 07:00] acetaminophen 1,000 mg PO DAILY PRN 11/03/20 [History Last Taken Unknown] azelastine-fluticasone 23 gm NS DAILY PRN 11/03/20 [History Last Taken Unknown] hydrocodone-acetaminophen 5 - 325 mg PO Q4H PRN 11/03/20 [History Last Taken Unknown] naproxen 375 mg PO BID PRN PRN 11/03/20 [History Last Taken Unknown] ondansetron 4 mg PO Q8H PRN PRN 11/03/20 [History Last Taken Unknown] peg [id number]-[id number] 15 drp EACH EYE BID PRN 11/03/20 [History Last Taken Unknown] vitamins A,C,O-ofkl-fvunyw 1 each PO DAILY 11/03/20 [History Last Taken Unknown] diclofenac sodium 100 gm TP TID PRN 11/10/20 [History Last Taken Unknown] buspirone 5 mg tablet 5 mg PO TID 03/25/21 [History Last Taken 03/31/21] tramadol 50 mg tablet 50 mg PO Q6H PRN 03/25/21 [History Last Taken Unknown] famotidine 20 mg tablet 20 mg PO DAILY PRN 05/13/21 [History Last Taken Unknown] allopurinol 100 mg PO DAILY 07/30/21 [History Last Taken Unknown] cefdinir 300 mg PO BID 07/30/21 [History Last Taken Unknown] magnesium hydroxide 10 ml PO DAILY PRN 07/30/21 [History Last Taken Unknown] menthol-sorbitol [Throat Lozenges] 1 gonzalez MUCOUS MEMBRANE Q2H PRN 07/30/21 [History Last Taken Unknown] polyethylene glycol 3350 17 g PO BID PRN 07/30/21 [History Last Taken Unknown] prednisone 20 mg PO BID 07/30/21 [History Last Taken Unknown] senna 8.6 mg PO DAILY PRN 07/30/21 [History Last Taken Unknown] sucralfate 1 gm PO 4X/DAY 07/30/21 [History Last Taken Unknown] Allergy/AdvReac Type Severity Reaction Status Date / Time acetaminophen [From Percocet] Allergy Intermediate Laryngospas Verified 06/24/21 14:26 ms erythromycin base Allergy Intermediate stomach Verified 06/24/21 14:26 ache/headaches oxycodone HCl [From Percocet] Allergy Intermediate Laryngospas Verified 06/24/21 14:26 ms sulfamethoxazole Allergy Intermediate Nausea Verified 06/24/21 14:26 [From Bactrim] trimethoprim [From Bactrim] Allergy Intermediate Nausea Verified 06/24/21 14:26 metoclopramide [From Reglan] Allergy Mild cough Verified 06/24/21 14:26 azithromycin AdvReac Severe Chest Verified 06/24/21 14:26 [From Zithromax Z-Angel] tightness tetracycline AdvReac Severe Swelling Verified 06/24/21 14:26 hydrocodone bitartrate AdvReac Intermediate Nausea Verified 06/24/21 14:26 [From Vicodin] lisinopril AdvReac Intermediate cough Verified 06/24/21 14:26 Antihistamines - Alkylamine AdvReac Nausea Verified 06/24/21 14:26 imipramine AdvReac Other Verified 06/24/21 14:26 Family History Mother Cancer leukemia Surgical History hhistory exciion skin lesion left arm history bunion surgery history cataract surgery right eye history incisional herniorrhaphy with mesh history left eye surgery history lysis of adhesions History of back surgery History of bladder repair surgery History of cholecystectomy History of hemorrhoidectomy History of hysterectomy History of lithotripsy History of repair of hiatal hernia history of tumor removed from ureter history removal plate in neck history surgery left shoulder Social History (Updated 07/30/21 @ 18:[address] Jason Pierce MD) household members: none housing: assisted living facility Smoking Status: Former smoker alcohol intake: never substance use type: does not use Vital Signs Vital Signs Vital Signs: 07/30/21 17:50 Temperature 98.2 F Temperature Source Temporal Pulse Rate 79 Respiratory Rate 16 Blood Pressure 150/63 H Blood Pressure Mean 92 Blood Pressure Source Monitor Blood Pressure Position Sitting Blood Pressure Location Left Arm Pulse Ox 94 Oxygen Delivery Method Room Air Weight Weight: 59.874 kg Assessment & Plan Assessment/Plan (1) Debility: (2) Hyponatremia: (3) Right knee pain: (4) Effusion, right knee: (5) 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 Debility - PT/OT. Dysarthria - ST. Pain - Tylenol 1000mg q6h prn pain (1-3), Tramadol 50mg q6h prn pain (4-10), Diclofenac 100gm topical tid prn knee pain. Bowel - Miralax 17gm daily, senna/colace 2 tablets bid, Dulcolax 10mg daily prn, Magnesium citrate 300ml po x 1 bottle, Soap suds enema x 1. Adult immunization - Administer prevnar 13, pneumovax 23, fluzone, covid19 vaccine as appropriate. DVT prophylaxis - Hold, anemia. Gout - Allopurinol 100mg daily. Hypertension - Metoprolol succinate 100mg daily, Amlodipine 10mg daily, Chlorthalidone 25mg daily. Allergic Rhinitis - Dymista nasal spray q12h prn. Hair loss - Biotin 5000mg daily. Anxiety - Buspar 5mg tid, stable chronic emt intermediate use, GDR not recommended. ID - Cefdinir 300mg bid thru 08/05/2021. Hypertriglyceridemia - Fenofibrate 130mg daily. Cough - Cepacol 1 lozenge q2h prn. Diabetes Mellitus II - Metformin 500mg bid. Nausea - Zofran odt 4mg q8h prn. Dry Eyes - Artificial tears 1gtt ou q6h prn. Right knee pain - Prednisone 20ng bid thru 08/03/2021. Myelodysplastic syndrome - Transfuse PRBC hemoglobin < 7, Transfuse platelets Platelet < 15,000. Ileus - KUB consistent with ileus, NS 60cc/hour, consider General surgery consult. No physical exam, ROS, because resident NOT seen. Resident declined CT abdomen/pelvis, General surgery consult for ileus, small bowel obstruction. She had abdominal pain, nausea, vomiting. Resident requested transfer to Inpatient Hospice Unit for end of life care. Her spent time at Inpatient Hospice unit.
[2021-07-30] MEDS: Magnesium Citrate 300 ML PO (20:55)
[2021-07-30] MEDS: Senna/Docusate Sodium 1 Tablet 2 TABLET PO (21:06)
[2021-07-30] MEDS: Polyethylene Glycol 3350 17 GM PACKET PO (21:06)
[2021-07-30] MEDS: busPIRone 5 MG Tablet PO (21:07)
[2021-07-30] MEDS: 0.9% Normal Saline 1,000 ML 60 ML IV (21:11)
[2021-07-30] MEDS: 0.9% Saline Lock 10 ML Syringe IV (21:30)
[2021-07-30 22:00] VITALS: RESP 16
--- NOTE | 2021-07-30 23:40 | NURSING ---
contacted via software engineering manager regarding KUB results, and small loose bowl movement result after soap suds enema. Per Dr. Pierce day nurse to contact general surgery related to KUB results, and CT scan to be completed as soon as possible pending insurance authorization. Per patient not to be sent to ED at this time to complete CT scan. Patient ordered metformin, per discharge paperwork from [place] last dose of metformin not listed/blank and is scheduled to begin in the morning of 07/31/21. Nursing communication in place for day nurse to contact in AM for metformin instructions related to contrast.
--- NOTE | 2021-07-31 00:41 | NURSING ---
Addendum entered by Elvira Yeung 07/31/21 00:47: patient also stated that she does not want sent to the ED if condition worsens. Original Note: Pt. notified of new order for CT scan in AM and for general surgery to be consulted in AM. Pt. states she does not want the CT scan to be completed and states she does not want surgery. Pt. states if surgery is needed she would prefer to be placed on hospice like my was and I already talked to my family about this as well and they agree. Pt. alert and oriented to person/place/time and able to voice needs.
[2021-07-31] MEDS: Ondansetron ODT 4 MG Tablet PO (00:58)
--- NOTE | 2021-07-31 01:12 | NURSING ---
contacted at this time per pt. request. Patient states she is suffering and I want to go to the [facility] in-patient hospice unit. Patient experiencing nausea and vomiting states I'm starting to get worse. Patient states I have blood cancer and I just can't tolerate anymore treatment, I don't want it, my family knows my wishes, I want to go to hospice. Dr. Pierce notified that patient is refusing CT scan and surgery. Dr. Pierce notified of patient request for morphine due to new onset LLQ and LUQ pain. New orders received from Dr. Pierce to contact hospice regarding patient wish to be admitted to in-patient unit. Dr. Pierce notified that patient in requesting son to be at bedside at this time until transfer to hospice. New order received for Roxanol liquid 5mg Q1hr PRN pain.
--- NOTE | 2021-07-31 01:35 | NURSING ---
[facility] (Miya) contacted regarding patient wish to be discharged to IPU per Dr. Stan Brown. [facility] to call back with further information if able to accept patient
--- NOTE | 2021-07-31 01:43 | NURSING ---
Pt. patient care representative (Rafat) contacted with updates of patient refusal of CT scan/surgery and request to be sent to In patient unit at [facility], Rafat notified that has been notified and received order for Roxanol and to contact [facility]. Rafat notified that [facility] has been notified and awaiting return phone call. Rafat notified that patient is requesting him to be present at bedside, Rafat states to arrive as soon as possible.
[2021-07-31] MEDS: morphine (oral solution) 10MG/0.5ML Syringe 5 MG PO ×2 (01:53→03:03)
--- NOTE | 2021-07-31 02:17 | NURSING ---
[facility] Nurse (Miya) calls unit, [facility] nurse to arrive to unit for patient assessment. Per [facility], pt. must have negative rapid covid test before patient can be sent to IPU.
[2021-07-31 03:06] LABS: Bedside Glucose 132 mg/dL (70-110)
--- NOTE | 2021-07-31 03:46 | NURSING ---
Addendum entered by Elvira Yeung 07/31/21 04:04: Report given to [facility] nurse (Yudith). Per Yudith's request, IV to be left in place to right AC upon discharge due to patient difficult IV access. Patient also requested for IV to be left in place to prevent need to be poked more Original Note: Per [facility] nurse (Estela) order received from [facility] PHERESIS NURSE (Gregg) for patient to be admitted to [facility] In-patient Unit. [facility] Nurse (Estela) states she [facility]-up transport with [facility] and they should arrive in approx. 2 hours to transport patient to [facility]. Per [facility] nurse Estela, paperwork signed by son Rafat and patient for admit to hospice. Covid test obtained per [facility] requirement to be admitted, result negative. brineyard supervisor notified of patient to be sent to IPU per Dr. Pierce order.
[2021-07-31 05:00] VITALS: BP 176/74; PULSE 86; RESP 21; TEMP 36.9; O2SAT 93
--- NOTE | 2021-07-31 06:57 | NURSING ---
Pt. unable to accept 0600 medications due to continued nausea and emesis. [facility]waiting arrival of [facility], contacted via telephone at 0630 with estimated time of arrival 15 minutes.
--- NOTE | 2021-07-31 07:18 | NURSING ---
Addendum entered by Elvira Yeung 07/31/21 07:48: on unit, notified patient discharged Original Note: [facility] presents to [facility] to transport patient to in-patient unit [facility]. Patient discharged from unit at this time. Son Rafat and daughter present. Son rafat takes patient personal belongings along with patient.
--- NOTE | 2021-07-31 07:51 | PCM.DC.SUM ---
Providers Date of Admission: 07/30/21 Primary Care Physician: Dr. Brian Bee MD Consultations 07/31/21 01:37 Consult: Hospice / Palliative Care Routine Consulting Provider: [facility] Reason for Consult: possible bowel obstuction, patient request to be sent to [facility] EMERGENT Consult: Yes MD Notified: Yes Date Notified: 07/31/21 Time Notified: 01:37 Method of Notification: Verbal Comments:: contacted [facility] at [facility] Reason For Visit: RIGHT KNEE EFFUSION Diagnosis Discharge Diagnosis (1) Debility: Status: Acute Code(s): R53.81 - Other malaise (2) Hyponatremia: Status: Acute Code(s): E87.1 - Hypo-osmolality and hyponatremia (3) Right knee pain: Status: Acute Code(s): M25.561 - Pain in right knee (4) Effusion, right knee: Status: Acute Code(s): M25.461 - Effusion, right knee (5) MDS/MPN (myelodysplastic/myeloproliferative neoplasms): Status: Acute Code(s): D46.9 - Myelodysplastic syndrome, unspecified (6) Refractory anemia: Status: Acute Code(s): D46.4 - Refractory anemia, unspecified (7) Portillo's esophagus: Status: Acute Code(s): K22.70 - Portillo's esophagus without dysplasia (8) Gastritis: Status: Acute Code(s): K29.70 - Gastritis, unspecified, without bleeding (9) Diabetes mellitus: Status: Acute Code(s): E11.9 - Type 2 diabetes mellitus without complications (10) Hypertension: Status: Chronic Code(s): I10 - Essential (primary) hypertension (11) Hyperlipidemia: Status: Acute Code(s): E78.5 - Hyperlipidemia, unspecified (12) Anxiety: Status: Acute Code(s): F41.9 - Anxiety disorder, unspecified Hospital Course Operations None Procedures None Summary of Care Provided Minutes Spent on Discharge: 30 Hospital Course: 80 year old female with below past medical history hospitalized for right knee pain secondary right knee effusion, septic arthritis ruled out, encephalopathy with dysarthria, stroke ruled out, complicated by myelodysplastic syndrome, admitted to TCU with debility, here for rehabilitation, strengthening, prior to discharge home alone to [facility]. Resident has ileus, small bowel obstruction, resident declined treatment, wants to . Discharge to Inpatient Hospice Unit 07/31/2021 for end of life care. Weight / BMI Weight Weight: 59.874 kg Body Mass Index (BMI) 22.6 ABG / Lab / Microbiology Data Laboratory: Laboratory Results - last 24 hr 07/30/21 23:38: POC Glucose 132 H Microbiology: Microbiology 07/31/21 03:05 Nasal Secretion SARS-CoV-2 Antigen (Rapid) - Final Radiography Diagnostic Testing: Radiology Impression KUB X-Ray 07/30/21 18:50 IMPRESSION: Diffuse air-filled dilated small bowel loops. Findings may represent an ileus or small bowel obstruction. CT can further evaluate. Electronically Signed: Greg Horner MD at 22:17 EST , Service support , D/C Instructions Discharge Diet: No restrictions Discharge Activity: Return to Normal Activity Weight Bearing Status: Weight bearing as tolerated Additional Instructions: Discharge to Inpatient Hospice Unit 07/31/2021 for end of life care. Meaningful Use Info Meaningful Use Diagnoses (Choose all that apply): None applicable Discharge Plan Admission Admit Date/Time: 07/30/21 17:18 Primary Reason for Your Visit: Debility. Attending Provider: Jason Pierce Chi Primary Care Provider: Brian Bee Consulting Providers: Danielle Ann ; Reji Martins ; Blaire Zhu ; Roya Nichols ; Socorro Yancey ; Verna Leigh PARARESCUE MANAGER Instructions Additional Instructions / Restrictions: Discharge to Inpatient Hospice Unit 07/31/2021 for end of life care. Discharge Orders/Prescriptions Prescriptions: Discontinued amlodipine 10 mg tablet 10 mg PO DAILY RF: 0 chlorthalidone 25 mg tablet 25 mg PO DAILY RF: 0 fenofibrate nanocrystallized 145 mg tablet 130 mg PO DAILY RF: 0 ascorbate calcium (vitamin C) 500 mg tablet 500 mg PO DAILY RF: 0 docusate sodium [Colace] 100 mg capsule 100 mg PO DAILY PRN (Reason: Constipation) RF: 0 buspirone 5 mg tablet 5 mg PO TID RF: 0 tramadol 50 mg tablet 50 mg PO Q6H PRN (Reason: Pain) RF: 0 famotidine [Pepcid] 20 mg tablet 20 mg PO DAILY PRN (Reason: Indigestion) RF: 0 aspirin 81 MG tablet,delayed release (DR/EC) 81 mg PO DAILY RF: 0 cholecalciferol (vitamin D3) 1,000 UNIT tablet 2,000 unit PO DAILY RF: 0 Nasacort 2 puff NASAL BID PRN (Reason: Allergies) RF: 0 biotin 1 mg capsule 5,000 mcg PO DAILY RF: 0 Metformin HCl 500 MG tablet 500 mg PO BID RF: 0 metoprolol succinate 50 mg tablet extended release 24 hr 100 mg PO DAILY RF: 0 naproxen 375 MG tablet 375 mg PO BID PRN PRN (Reason: Pain 1-10 Or Fever) RF: 0 ondansetron 4 MG tablet 4 mg PO Q8H PRN PRN (Reason: Nausea) RF: 0 peg 806-[id number]-bbpfttak 1 DRP bottle 15 drp EACH EYE BID PRN (Reason: Dry Eye) RF: 0 hydrocodone-acetaminophen 1 EACH tablet 5 - 325 mg PO Q4H PRN (Reason: Pain 1-10 Or Fever) RF: 0 acetaminophen 325 MG capsule 1,000 mg PO DAILY PRN (Reason: Pain 1-10 Or Fever) RF: 0 vitamins A,C,G-jxdb-nsfilt 1 EACH capsule 1 each PO DAILY RF: 0 azelastine-fluticasone 23 GM spray,non-aerosol 23 gm NS DAILY PRN (Reason: Congestion) RF: 0 diclofenac sodium 100 GM gel 100 gm TP TID PRN (Reason: Pain 1-10 Or Fever) RF: 0 cefdinir 300 mg Capsule 300 mg PO BID RF: 0 polyethylene glycol 3350 17 gram Powder In Packet 17 g PO BID PRN (Reason: Constipation) RF: 0 prednisone 20 mg Tablet 20 mg PO BID RF: 0 allopurinol 100 mg Tablet 100 mg PO DAILY RF: 0 Throat Lozenges Lozenge 1 gonzalez MUCOUS MEMBRANE Q2H PRN (Reason: Cough) RF: 0 senna 8.6 mg Capsule 8.6 mg PO DAILY PRN (Reason: Constipation) RF: 0 magnesium hydroxide 2,400 mg/10 mL Suspension 10 ml PO DAILY PRN (Reason: Constipation) RF: 0 sucralfate 1 GM/10 ML suspension 1 gm PO 4X/DAY RF: 0 Referrals / Follow Up: Naumoff,Brian, MD [Primary Care Provider] - Edwin Alfaro MD [STAFF PHYSICIAN] - In 1 Week Disposition Disposition (needs filled in before D/C Order can be placed): Hospice in Medical Facility
--- NOTE | 2021-08-10 10:09 | MDS.RN ---
Information for the mds was obtained from review of the clinical record, interview of staff.
== END 2021-07-31 07:15 | disposition hospice, inpatient (51) | DRG 565 ==
PROVIDERS: Admitting Provider Family Medicine Geriatric Medicine; PCP Family Medicine; Visit Provider Family Medicine Geriatric Medicine
DX: M25.461 Effusion, right knee (principal); C94.6 Myelodysplastic disease, not elsewhere classified; N18.4 Chronic kidney disease, stage 4 (severe); K56.609 Unspecified intestinal obstruction, unspecified as to partial versus complete obstruction; E78.5 Hyperlipidemia, unspecified; K21.9 Gastro-esophageal reflux disease without esophagitis; I12.9 Hypertensive chronic kidney disease with stage 1 through stage 4 chronic kidney disease, or unspecified chronic kidney disease; M19.90 Unspecified osteoarthritis, unspecified site; E11.22 Type 2 diabetes mellitus with diabetic chronic kidney disease; F41.9 Anxiety disorder, unspecified; J30.9 Allergic rhinitis, unspecified; K22.70 Barrett's esophagus without dysplasia; M10.9 Gout, unspecified; Z79.899 Other long term (current) drug therapy; Z79.82 Long term (current) use of aspirin; Z79.84 Long term (current) use of oral hypoglycemic drugs; Z87.891 Personal history of nicotine dependence
CPT/HCPCS: 74018; 82962; 87426; J7030; A4216